=== PATIENT | female | born 1995 | race Caucasian/White ===

== ENCOUNTER 2023-06-06 22:49 | Emergency (ER) | payer BC, SELFPAY ==
[2023-06-06 22:52] VITALS: BP 131/83; PULSE 72; RESP 16; TEMP 36.6; O2SAT 99
[2023-06-06 22:59] VITALS: BP 117/81; PULSE 71; RESP 15; TEMP 36.6; O2SAT 100
--- NOTE | 2023-06-06 23:00 | ED.GENADUL_ITS ---
Discharge Plan Disposition Patient Disposition: Home Discharge Details Clinical Impression: Acute right otitis media Primary Care Provider: None,None ED Provider: Sander Hyatt Home Meds and New Rx's Prescriptions: New amoxicillin 500 mg capsule 1,000 mg PO Q12H 10 Days Qty: 40 0RF Continued norethindrone-e.estradiol-iron [Jordyn Fe [birth year])] 1 mg-20 mcg (21)/75 mg (7) tablet 1 tab PO ONCE Discharge Instructions Instructions: Ear Infection (ED) Additional Instructions: You are seen in the emergency department for your ear pain. You are diagnosed with an ear infection. Please take these antibiotics as directed. If you develop worsening pain after 48 hours please return to the emergency department. If you develop swelling on the outside of your please return to the emergency department. Please also return if you develop any fevers. For your pain please take medications as follows: 1. Take acetaminophen (Tylenol), 1,000 mg (two 500 mg tabs) every 6 hours [2. Take ibuprofen (Advil), 400 mg every 6 hours.] HPI General Date/Time Provider Initiated Documentation: 06/06/23 22:59 . HPI Narrative: MDM This is an overall very well-appearing normothermic and not tachycardic 27-year-old female with acute otitis media for which she will receive oral antibiotic treatment. No pain out of proportion to suggest necrotizing soft tissue infection. No mastoid tenderness to suggest mastoiditis. Good range of motion in the neck so I am not suspicious for retropharyngeal abscess. Uvula midline so doubt peritonsillar abscess. No vomiting to suggest increased risk for subdural empyema. No facial asymmetry to suggest facial palsy. No neck pain nor history of cervical spinal manipulation to suggest increased risk for dissection so I did not feel that the patient required a CT angiogram. No nuchal rigidity to suggest meningitis. Not altered to suggest encephalitis. No chest pain to suggest ACS. No shortness of breath nor hypoxia so doubt pneumonia. No posterior oropharynx erythema so doubt strep.No vesicles to suggest Avni Burnham. No signs of malignant otitis externa. Given no vomiting my suspicion for brain abscess was low. In the absence of dental pain I am not concerned for odontogenic infection. Patient took ibuprofen and acetaminophen earlier this evening so we will defer oral analgesia at this point however will recommend scheduled acetaminophen and ibuprofen at home. Given duration of time since patient's symptoms began and her discomfort and hearing changes affecting her ability to perform her work I elected to treat with 1000 mg of amoxicillin twice daily for 10 days. Patient and I discussed return indications including worsening pain after 48 hours of antibiotics and any external swelling of the ear (proptosis) or any tenderness behind her ear or vomiting. Patient understood her return indications and was discharged with an empiric trial of outpatient management. HPI This is a 27-year-old previously healthy female arrived to the emergency [facility] via private vehicle in the setting of right-sided ear pain. Patient went to urgent care 4 days ago after she began having pain in her right ear 7 days ago. 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 She transiently had improvement in her symptoms after visiting urgent care where she was diagnosed with a bruised cartilage. She has no prior history of ear infections as an adult. Yesterday her symptoms worsened. She denies any trauma for her ear. She denies any drainage from her ear. She has not had muffled hearing. Her ear feels full. She feels that the pain in her ear radiates down into her jaw. She is not having any dental pain. No sore throat. No cough. No fevers. Exam General: Well-appearing in no acute distress speaking in complete sentences. Head: Normocephalic, atraumatic. Eye:[Pupils equal, round reactive to light.] Extraocular eye movements intact. No conjunctival injection. No scleral icterus. Ear, nose, mouth, throat: Right TM erythematous and bulging. Mild erythematous area on the antihelix at the area which patient was using a hot water bottle. No bullae. No mastoid tenderness. No proptosis. Normal voice, handling secretions normally. No posterior oropharynx erythema. Uvula midline. Neck: Trachea midline. Good range of motion in neck. Cardiovascular: Well-perfused distal extremities. Respiratory: Nonlabored respiration. Gastrointestinal: Nondistended abdomen. Musculoskeletal: No edema. Moving all 4 extremities spontaneously. Skin: Normal for age and race, grossly normal temperature and turgor. No acute rash. Neurologic: Alert and appropriate, no apparent acute deficits. Psychiatric: Mood and manner are appropriate. Grooming and personal hygiene are appropriate. Related Data Home Medications Medication Instructions Recorded Confirmed amoxicillin 500 mg capsule 1,000 mg (2 x 500 mg) PO Q12H 10 06/06/23 days #40 caps norethindrone 1 mg-ethinyl 1 tab PO ONCE 06/06/23 06/06/23 estradiol 20 mcg (21)-iron 75 mg (7) tablet (Jordyn Fe 03/[birth year] ([birth year])) Previous Rx's Medication Instructions Recorded amoxicillin 500 mg capsule 1,000 mg (2 x 500 mg) PO Q12H 10 06/06/23 days #40 caps Allergies Allergy/AdvReac Type Severity Reaction Status Date / Time NKDA Allergy none Uncoded 06/06/23 23:01 General Stated Complaint: EarProblem SONDRA: 4 Course Vital Signs Vital signs: Vital Signs Temperature 36.6 C 06/06/23 22:52 Pulse 72 06/06/23 22:52 Respiratory Rate 16 06/06/23 22:52 Blood Pressure 131/83 06/06/23 22:52 Pulse Oximetry 99 06/06/23 22:52 Temperature 36.6 C 06/06/23 22:52 Temperature Source Temporal Artery Scan 06/06/23 22:52 Pulse 72 06/06/23 22:52 Respiratory Rate 16 06/06/23 22:52 Respiratory Effort Normal, Non-Labored 06/06/23 22:58 Blood Pressure 131/83 06/06/23 22:52 Blood Pressure Position Sitting 06/06/23 22:52 Pulse Oximetry 99 06/06/23 22:52 Oxygen Delivery Method Room Air 06/06/23 22:52 Oxygen Flow Rate 0 06/06/23 22:52 Medical Decision Making Quality:SDOH Health Related Social Needs: No Data to Display PFSH All Active Problems (Updated 06/06/23 @ 23:28 by Sander Hyatt MD) Acute right otitis media (Acute) Social History Smoking/Tobacco Use Status: Never Smoking risk assessment performed?: Yes Alcohol Intake: current Alcohol Intake frequency: a few times a week Alcohol type: beer and wine Substance use type: does not use Housing: house Do you feel safe at home: Yes Do you feel safe in your relationship?: Yes
[2023-06-06] MEDS: Amoxicillin 500 MG CAP 1000 MG PO (23:37)
[2023-06-06 23:38] VITALS: BP 124/67; PULSE 87; RESP 14; O2SAT 99
== END 2023-06-06 23:55 | disposition home or self-care (01) ==
PROVIDERS: Emergency Provider Emergency Medicine
DX: H65.191 Other acute nonsuppurative otitis media, right ear
CPT/HCPCS: 99283; 99284

== ENCOUNTER 2023-06-09 09:27 | Emergency (ER) | payer BC, SELFPAY ==
[2023-06-09 09:28] VITALS: BP 119/73; PULSE 79; RESP 16; TEMP 36.7; O2SAT 99
[2023-06-09 09:33] VITALS: BP 119/73; PULSE 79; RESP 16; TEMP 36.7; O2SAT 99
--- NOTE | 2023-06-09 09:43 | ED.GENADUL_ITS ---
Discharge Plan Disposition Patient Disposition: Home Condition: Good Discharge Details Clinical Impression: Acute otitis media, right Primary Care Provider: None,None ED Provider: Orestes Hammond Home Meds and New Rx's Prescriptions: New levofloxacin 500 mg tablet 500 mg PO DAILY Qty: 7 0RF Discontinued amoxicillin 500 mg capsule 1,000 mg PO Q12H 10 Days Qty: 40 0RF No Action norethindrone-e.estradiol-iron [Jordyn Fe 03/[birth year] ([birth year])] 1 mg-20 mcg (21)/75 mg (7) tablet 1 tab PO ONCE Discharge Instructions Instructions: Ear Infection (ED) Additional Instructions: At this time you have a notable continued right-sided otitis media that does not appear to be getting better. There is a chance that rupture could occur. There has been a notable increase in resistance lately, and it has been found locally that levofloxacin has been more effective treatment for this. Please take the antibiotic as directed. As we discussed together there is a small but present risk of tendon irritation, damage, or in the worst case scenario rupture. This is usually found with high activity sports. Please avoid any aggressive fast movements, only do gentle exercising. If you notice any tendon or ligament irritation, please stop the antibiotic, avoid those activities and contact your provider immediately. Please increase your NSAID use, take 600 mg of ibuprofen every 6 hours and 1000 mg of Tylenol every 6 hours as needed for pain. This is nearly the maximum dose. If you notice any worsening of your symptoms, or any new symptoms such as vomiting, diarrhea, fever, chills, shortness of breath, chest pain, numbness, weakness, or fainting , please return immediately to the emergency department for reevaluation. Please follow up with your primary care provider as soon as possible for reassessment and reevaluation. As always, it was a pleasure participating in your medical care today. Referrals: Kilo Christie MD [ [facility]YSICIAN] - [facility] General Date/Time Provider Initiated Documentation: 06/09/23 09:31 . HPI Narrative: 27-year-old female with no significant past medical history who presents today for evaluation of right-sided otitis media. Patient initially had mild achiness in the right ear about a week ago, she went to urgent care on Wednesday and was noted to have a large effusion. No evidence of rupture. She was started on amoxicillin and has been taking that for the last 3 to 4 days. Unfortunately she has had no improvement of her symptoms, and is actually had slight worsening of the pain. In addition to that she has now developed mild right jaw pain, minimal trismus. She denies a fever or chills. She has been taking NSAIDs without significant improvement. She denies drainage, headache, or posterior ear pain. Related Data Home Medications Medication Instructions Recorded Confirmed norethindrone 1 mg-ethinyl 1 tab PO ONCE 06/06/23 06/09/23 estradiol 20 mcg (21)-iron 75 mg (7) tablet (Jordyn Fe 03/13 ([birth year])) levofloxacin 500 mg tablet 500 mg PO DAILY #7 tabs 06/09/23 Previous Rx's Medication Instructions Recorded levofloxacin 500 mg tablet 500 mg PO DAILY #7 tabs 06/09/23 Allergies Allergy/AdvReac Type Severity Reaction Status Date / Time NKDA Allergy none Uncoded 06/09/23 09:34 General Stated Complaint: EarProblem SONDRA: 3 Review of Systems All systems reviewed & are unremarkable except as noted in HPI and below Exam Narrative Exam Narrative: 1.Const: Well-nourished, Well-developed, appearing stated age 2.Eyes: PERRL, no conjunctival injection, and symmetrical lids. 3.ENT: Left tympanic membrane dawson and pearly, right tympanic membrane demonstrates notable effusion, erythema, bulging. No evidence of rupture. Patient does have mild right TMJ pain, however there is no mastoid tenderness, no mastoid pain or effusion. No nuchal rigidity or temporal bone pain. No erythema in the external canal. 4.CVS: +S1/S2, No murmurs or gallops. Peripheral pulses 2+ and equal in all extremities. Brisk capillary refill in all extremities. 5.RESP: Unlabored respiratory effort. Clear to auscultation bilaterally. No wheezes rales or rhonchi 6.GI: Soft, Nontender/Nondistended, No hepatosplenomegaly. No guarding or re bound. 7.MSK: Normocephalic/Atraumatic, Extremities w/o deformity or ttp No cyanosis or clubbing, Normal movement of all extremities 8.Skin: Warm, Dry. No rashes or lesions. 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 Sensation grossly intact, no focal neurologic deficits. 10.Psych: (AAO) x3. Appropriate mood and affect Course Vital Signs Vital signs: Vital Signs Temperature 36.7 C 06/09/23 09:28 Pulse 79 06/09/23 09:28 Respiratory Rate 16 06/09/23 09:28 Blood Pressure 119/73 06/09/23 09:28 Pulse Oximetry 99 06/09/23 09:28 Temperature 36.7 C 06/09/23 09:33 Temperature Source Temporal Artery Scan 06/09/23 09:33 Pulse 79 06/09/23 09:33 Respiratory Rate 16 06/09/23 09:33 Respiratory Effort Normal 06/09/23 09:32 Blood Pressure 119/73 06/09/23 09:33 Blood Pressure Position Sitting 06/09/23 09:33 Pulse Oximetry 99 06/09/23 09:33 Oxygen Delivery Method Room Air 06/09/23 09:33 Oxygen Flow Rate 0 06/09/23 09:33 Pain Level 7 06/09/23 09:34 Medical Decision Making 27-year-old female with no significant past medical history who presents today for evaluation of right-sided otitis media. Patient initially had mild achiness in the right ear about a week ago, she went to urgent care on Wednesday and was noted to have a large effusion. No evidence of rupture. She was started on amoxicillin and has been taking that for the last 3 to 4 days. Unfortunately she has had no improvement of her symptoms, and is actually had slight worsening of the pain. In addition to that she has now developed mild right jaw pain, minimal trismus. She denies a fever or chills. She has been taking NSAIDs without significant improvement. She denies drainage, headache, or posterior ear pain. Exam demonstrates notable right-sided otitis media with effusion bulging and redness. Mild TMJ, no tenderness whatsoever over the mastoid process. No evidence of mastoiditis. No headache, no temporal bone pain, no otitis externa. Symptoms consistent with notable otitis media which appears to be resistant to oral antibiotics. Recently we have been seeing a few episodes of adult otitis media, and I have actually been in communication with ENT about this. I did discuss this with Shahnaz today, and he states that he has noted a significant resistant population to amoxicillin based treatments over the past few months, and is found increased success with Levaquin at 500 mg daily for 7 days. As the patient seems to be demonstrating resistance in this scenario, and with the note ability of her otitis media I do feel that enhancing treatment is indicated at this time. I had a long discussion with her about risks and benefits of the levofloxacin. She had test performed here and this was negative. I did discuss with her activity, risks of tendon irritation and damage and rupture, and she understands. Understanding this she accepts medication as treatment option at this time. Patient will be started on levofloxacin. Recommend continued NSAIDs at home. Discussed red flags for which to return. No evidence of mastoiditis, malignant otitis externa, toxic labyrinthitis, or other acute etiology. No clinical evidence of meningitis or sepsis. Discussed red flags which to return. I have extensively reviewed the treatment plan and discharge instructions with the patient. I have addressed all patient concerns at this time. The patient was made aware of what symptoms to monitor for that would warrant a return to the emergency department. Discussed the plan with the patient, they demonstrate verbal understanding and agreement with our assessment and plan at this time. The documentation in this chart was dictated using [employer] dictation software. Please excuse any dictation errors. Quality:SDOH Health Related Social Needs: No Data to Display PFSH All Active Problems Acute otitis media, right (Acute) Social History Smoking/Tobacco Use Status: Never Smoking risk assessment performed?: Yes Alcohol Intake: current Alcohol Intake frequency: a few times a week Alcohol type: beer and wine Substance use type: does not use Housing: house Do you feel safe at home: Yes Do you feel safe in your relationship?: Yes PAWSS Have you Been Recently Intoxicated or Drunk Within the Last 30 days?: No Have you Ever Experienced Previous Episodes of Alcohol Withdrawal?: No Have you ever Experienced Withdrawal Seizures?: No Have you ever Experienced Delirium Tremens(DT)s?: No Have you ever undergone Alcohol Rehabilitation Treatment (i.e, inpt ot outpatient treatment programs)?: No Have you ever Experienced Blackouts?: No Have you ever Combined Alcohol with other Downers within the last 90 days?: No Have you ever Combined Alcohol with any other Substance of Abuse during the last 90 days?: No Result: 0
[2023-06-09] MEDS: Amoxicillin 875/Clav. 125 TAB PO (09:45)
== END 2023-06-09 10:01 | disposition home or self-care (01) ==
LOC: ER 10:03
PROVIDERS: Emergency Provider Student in an Organized Health Care Education/Training Program
DX: R68.84 Jaw pain (principal); H66.91 Otitis media, unspecified, right ear
CPT/HCPCS: 81025; 99283; 99284

== ENCOUNTER 2024-05-05 09:45 | Emergency (ER) | payer BC, SELFPAY ==
[2024-05-05 09:48] VITALS: BP 118/79; PULSE 90; RESP 18; TEMP 36.6; O2SAT 99
[2024-05-05] MEDS: Lidocaine/Prilocaine Cream 5 GM TUBE (10:06)
--- NOTE | 2024-05-05 10:26 | ED.GENADUL_ITS ---
Discharge Plan Disposition Patient Disposition: Home Discharge Details Clinical Impression: Foreign body (FB) in soft tissue ED Provider: Diego Gates Home Meds and New Rx's Prescriptions: No Action norethindrone-e.estradiol-iron [Jordyn Fe 03/[birth year] ([birth year])] 1 mg-20 mcg (21)/75 mg (7) tablet 1 tab PO ONCE levofloxacin 500 mg tablet 500 mg PO DAILY Qty: 7 0RF Discharge Instructions Instructions: Foreign Body in Skin (DC) Additional Instructions: Splinter removed without complication. Might be sore for the next few days, you can apply ice pack, take Motrin and Tylenol as needed for pain. Keep the area clean with soap and water. If you develop any redness swelling or foul-smelling drainage, please get reevaluated HPI General Date/Time Provider Initiated Documentation: 05/05/24 09:55 . Limitations to Documentation: no limitations . Information obtained by: patient . HPI Narrative: 28-year-old female without significant past medical history presents for evaluation of foreign body in her right foot. She reports that she was walking barefoot in her home when she got a splinter from her floor. She did not attempt removal. She reports pain localized to the bottom of her right foot. Worse with walking or standing from the area. Related Data Home Medications ?Medication ?Instructions ?Recorded ?Confirmed norethindrone 1 mg-ethinyl 1 tab PO ONCE 06/06/23 06/09/23 estradiol 20 mcg (21)-iron 75 mg (7) tablet (Jordyn Fe 03/13 ()) levofloxacin 500 mg tablet 500 mg PO DAILY #7 tabs 06/09/23 Previous Rx's ?Medication ?Instructions ?Recorded levofloxacin 500 mg tablet 500 mg PO DAILY #7 tabs 06/09/23 Allergies Allergy/AdvReac Type Severity Reaction Status Date / Time NKDA Allergy none Uncoded 06/09/23 09:34 General Stated Complaint: ForeignBody SONDRA: 5 Exam Narrative Exam Narrative: Review of Systems: All systems reviewed & are unremarkable except as noted in HPI and below Well-developed, no acute distress Unlabored respiratory effort Right foot with obvious splinter foreign body noted, approximately 3 cm Course Vital Signs Vital signs: Vital Signs Temperature 36.6 C 05/05/24 09:48 Pulse 90 05/05/24 09:48 Respiratory Rate 18 05/05/24 09:48 Blood Pressure 118/79 05/05/24 09:48 Pulse Oximetry 99 05/05/24 09:48 Temperature 36.6 C 05/05/24 09:48 Temperature Source Oral 05/05/24 09:48 Pulse 90 05/05/24 09:48 Respiratory Rate 18 05/05/24 09:48 Respiratory Effort Normal 05/05/24 09:52 Respiratory Pattern Normal 05/05/24 09:52 Blood Pressure 118/79 05/05/24 09:48 Blood Pressure Position Sitting 05/05/24 09:48 Pulse Oximetry 99 05/05/24 09:48 Oxygen Delivery Method Room Air 05/05/24 09:48 Oxygen Flow Rate 0 05/05/24 09:48 Pain Level 2 05/05/24 09:48 Procedure Foreign Body Removal Location of procedure: Other (Plantar surface right foot, Emla cream applied and freeze spray utilized for analgesia. 3 cm splinter removed intact with forceps. Tolerated the procedure well, no complications.) Medical Decision Making Emergent evaluation of foreign body in the plantar surface of the right foot. Wound without signs of acute infection or any violation of deep space structures. Splinter removed without complication. Tolerated procedure well. Wound care discussed with patient for home and discharged in good condition. Quality:SDOH Health Related Social Needs: No Data to Display PFSH All Active Problems (Updated 05/05/24 @ 10:25 by Diego Gates MD) Foreign body (FB) in soft tissue (Acute) Social History Smoking/Tobacco Use Status: Never Smoking risk assessment performed?: Yes Alcohol Intake: current Alcohol Intake frequency: a few times a week Alcohol type: beer and wine Substance use type: does not use Housing: house Do you feel safe at home: Yes Do you feel safe in your relationship?: Yes PAWSS Have you Been Recently Intoxicated or Drunk Within the Last 30 days?: No Have you Ever Experienced Previous Episodes of Alcohol Withdrawal?: No Have you ever Experienced Withdrawal Seizures?: No Have you ever Experienced Delirium Tremens(DT)s?: No Have you ever undergone Alcohol Rehabilitation Treatment (i.e, inpt ot outpatient treatment programs)?: No Have you ever Experienced Blackouts?: No Have you ever Combined Alcohol with other Downers within the last 90 days?: No Have you ever Combined Alcohol with any other Substance of Abuse during the last 90 days?: No Positive Blood Alcohol level on Presentation? [PCS.BAL]: No Evidence of Increased Autonomic Activity (i.e. HR>120, tremor, sweating, agitation, nausea)?: No Result: 0
[2024-05-05 10:28] VITALS: PULSE 83; RESP 18; O2SAT 99
== END 2024-05-05 10:30 | disposition home or self-care (01) ==
LOC: ER 10:34
PROVIDERS: Emergency Provider Emergency Medicine
DX: S90.851A Superficial foreign body, right foot, initial encounter (principal); W45.8XXA Other foreign body or object entering through skin, initial encounter; Y93.01 Activity, walking, marching and hiking; Y92.018 Other place in single-family (private) house as the place of occurrence of the external cause; Z18.33 Retained wood fragments
CPT/HCPCS: 99283

== ENCOUNTER 2024-06-16 23:35 | Emergency (ER) | payer BC, SELFPAY ==
[2024-06-16 23:38] VITALS: BP 132/94; PULSE 81; RESP 18; TEMP 36.8; O2SAT 99
--- NOTE | 2024-06-16 23:39 | ED.GENADUL_ITS ---
Discharge Plan Disposition Patient Disposition: Home Condition: Good Discharge Details Clinical Impression: Dog bite, Laceration of arm Primary Care Provider: None,None ED Provider: Diana Chase Home Meds and New Rx's Prescriptions: New amoxicillin-pot clavulanate 875-125 mg tablet 1 tab PO BID Qty: 8 0RF Continued norethindrone-e.estradiol-iron [Jordyn Fe 03/13 ()] 1 mg-20 mcg (21)/75 mg (7) tablet 1 tab PO ONCE Discharge Instructions Instructions: Animal Bites ED Additional Instructions: Tylenol and ibuprofen over the counter for pain; follow the directions on the bottle. Antibiotic twice a day for the next 5 days. Stitches out in 7-10 days; primary care, urgent care, or in the ED. Return to the emergency department for new or worsening symptoms including severe pain, thick green or white discharge from your cut, fevers, difficulty moving your arm or hand, numbness or tingling in your arm or hand, or if you have any other concerns. Referrals: Blaine Cordova RN [Emergency Nurse] - [facility] General Mode of arrival: ambulatory . Date/Time Provider Initiated Documentation: 06/16/24 23:37 . Limitations to Documentation: no limitations . Information obtained by: patient . HPI Narrative: 28yo previously healthy female presenting after dog bite. Got between her dog a nd her boyfriend's dog and her dog bit her on the left arm just prior to arrival. Dog is fully vaccinated against rabies and available for observation. No numbness, tingling, or weakness in her left upper extremity. Bleeding controlled with pressure prior to arrival. Otherwise in her usual state of health. Related Data Home Medications ?Medication ?Instructions ?Recorded ?Confirmed norethindrone 1 mg-ethinyl 1 tab PO ONCE 06/06/23 06/16/24 estradiol 20 mcg (21)-iron 75 mg (7) tablet (Jordyn Fe 03/13 ()) amoxicillin 875 mg-potassium 1 tab PO BID #8 tabs 06/17/24 clavulanate 125 mg tablet Previous Rx's ?Medication ?Instructions ?Recorded amoxicillin 875 mg-potassium 1 tab PO BID #8 tabs 06/17/24 clavulanate 125 mg tablet Allergies Allergy/AdvReac Type Severity Reaction Status Date / Time NKDA Allergy none Uncoded 06/16/24 23:49 General SONDRA: 5 Review of Systems Narrative: see HPI Exam Narrative Exam Narrative: General: Alert, well appearing, well nourished, in no acute distress. Head: Normocephalic, atraumatic Neck: Trachea midline, ?Neck supple. Cardiac: ?RRR, no murmurs appreciated Resp: No respiratory distress. Speaking in full sentences Neurologic: GCS 15. ? Moves all extremities freely against gravity Extremities: ?LUE with 8cm c-shaped laceration/flap proximal to left elbow and not overlying joint. SQ involvement, thoroughly explored with no involvement of deeper structures. 2 small ~3mm puncture wounds proximal to this laceration, probed and shallow, not overlying joint. Distal sensation, pulses, capillary refill, and strength intact at elbow/wrist/all digits. Procedure Laceration Laceration 1: Date of Procedure: 06/17/24 Time of procedure: 01:30 Provider that performed the procedure: Diana Chase Patient Consented: Verbally Site: upper extremity Side (If applicable): left Description: flap Depth: simple, single layer Local anesthetic: Lidocaine 2% and with Epi Amount of anesthesia used (mL): 10 Pre-repair:: wound explored, irrigated extensively and deep structures intact Skin layer closed with: nylon Suture size: 4-0 Number of sutures:: 8 Technique: simple, interrupted Medical Decision Making 28yo previously healthy female presenting after dog bite. Vital signs reassuring on arrival. Bleeding controlled. Neurovascular intact. Given tylenol, toradol, 25mcg fentanyl with PO zofran for symptoms prior to irrigation and full exam. Laceration to left arm just proximal to elbow 8cm c-shaped l aceration/flap not overlying joint. SQ involvement, thoroughly explored with no involvement of deeper structures. 2 small ~3mm puncture wounds proximal to this laceration, probed and shallow, not overlying joint. Distal sensation, pulses, capillary refill, and strength intact at elbow/wrist/all digits. No indication for CT or vascular imaging or labwork. XR independently reviewed; no foreign body or fracture on my view, radiology read below. Would prefer to avoid primary closure however given large flap, was very loosely approximated with 8 simple interrupted sutures. Tetanus booster given. As far as rabies, immunized dog available for observation; will not give rabies IG. Dog bite report filled out. Will do 5 days of amox-clauv BID for ppx (first dose given on arrival). Discharged home; discharge instructions and return precautions were reviewed with patient who verbalized understanding. All questions were answered and she is in full agreement with the plan. Imaging Data Radiologic Study: Imaging: X-Ray Radiologist's impression: IMPRESSION: 1. Moderate anterior distal arm soft tissue edema with subcutaneous gas. No radiopaque foreign body. 2. No fracture or dislocation Quality:SDOH Health Related Social Needs: No Data to Display PFSH All Active Problems (Updated 06/17/24 @ 01:57 by Diana Chase MD) Laceration of arm (Acute) Dog bite (Acute) Social History Smoking/Tobacco Use Status: Never Smoking risk assessment performed?: Yes Alcohol Intake: current Alcohol Intake frequency: a few times a week Alcohol type: beer and wine Substance use type: does not use Housing: house Do you feel safe at home: Yes Do you feel safe in your relationship?: Yes
[2024-06-16] MEDS: Ketorolac 15 MG/ML VIAL IM (23:57)
[2024-06-16] MEDS: Tetanus & Diphtheria Tox,ADULT 0.5 ML VIAL IM (23:58)
[2024-06-16] MEDS: fentaNYL 100 MCG/2 ML VIAL 25 MCG IM (23:58)
[2024-06-17] MEDS: Ondansetron O.D.T. 4 MG TABEF PO (00:01)
[2024-06-17] MEDS: Acetaminophen 500 MG TAB 1000 MG PO (00:01)
[2024-06-17] MEDS: Amoxicillin 875/Clav. 125 TAB PO (00:02)
--- NOTE | 2024-06-17 00:31 | DI.RAD_ITS ---
Exam(s) XR ELBOW LT COMPLETE EXAM: XR ELBOW LT COMPLETE CLINICAL HISTORY: dog bite, eval FB. TECHNIQUE: 2D digital imaging was performed of the left elbow. Three images were obtained. AP, lat eral and oblique views were obtained. COMPARISON: No exams were available for comparison FINDINGS: BONES: No acute fracture is present. No bony destructive lesion is seen. JOINTS: The elbow is normally aligned. No joint effusion is seen. SOFT TISSUE: There is air in the soft tissues of the anterior lateral arm adjacent to the distal claudia matthew. There is also disruption of the soft tissues consistent with a laceration in this region. No r adiopaque foreign bodies are identified. IMPRESSION: 1. No acute fracture, dislocation or radiopaque foreign body. 2. In the anterolateral soft tissues adjacent to the distal humerus, there is soft tissue gas and a s oft tissue laceration present. 3. The preliminary [facility] report was reviewed. DATA REPOSITORY: RADIATION DOSE DELIVERED:
--- NOTE | 2024-06-17 00:54 | DI.[facility]_ITS ---
PROCEDURE INFORMATION: Exam: XR Left Elbow Exam date and time: 06/17/2024 12:25 AM Age: 28 years old Clinical indication: Injury or trauma; Elbow; Left; Injury date: 06/17/24; Dog bite, eval fb TECHNIQUE: Imaging protocol: Radiologic exam of the left elbow. Views: 3 or more views. COMPARISON: No relevant prior studies available. FINDINGS: Bones/joints: No fracture or dislocation. Soft tissues: Moderate anterior distal arm soft tissue edema with subcutaneous gas. No radiopaque foreign body. IMPRESSION: 1. Moderate anterior distal arm soft tissue edema with subcutaneous gas. No radiopaque foreign body. 2. No fracture or dislocation. Dictated and Authenticated by: Isatu Brady MD. Orderin Salvatore Ortiz MD
[2024-06-17] MEDS: Amox. 875/Clav. 125, 2 TABS/BTL 1 TAB PO (02:05)
--- NOTE | 2024-06-17 11:06 | NUR.NOTE ---
Animal bite report form faxed to [place] [facility] Officer Walter Robb and to [facility] Clerk. Message left for health officer. Nursing Note:
== END 2024-06-17 02:06 | disposition home or self-care (01) ==
PROVIDERS: Emergency Provider Student in an Organized Health Care Education/Training Program
DX: S51.851A Open bite of right forearm, initial encounter (principal); W54.0XXA Bitten by dog, initial encounter
CPT/HCPCS: 99284 ×2; 12004; 90471; 96374; 96375; 90714; 73080; J1885; J2004; J3010